=== PATIENT | female | born 1960 | race Caucasian/White ===

== ENCOUNTER 2017-12-19 09:07 | Emergency (ER) | payer BC, OTHER ==
[~2017-12-19] VITALS: Ht 157.5 cm; Wt 49.9 kg
--- NOTE | 2017-12-19 09:58 | Diagnostic Imaging Report ---
INDICATION: Fall, right shoulder injury. TECHNIQUE: 3 views of the right shoulder. COMPARISON: None FINDINGS: There is a fracture through the surgical neck of the right humerus, with vertical extension through the greater tuberosity. There is mild impaction and minimal displacement. Glenohumeral alignment appears normal. There is minimal degenerative change in the right acromioclavicular joint. IMPRESSION: 1. Acute fracture through the surgical neck of the right humerus with extension through the greater tuberosity. There is mild impaction and minimal displacement. Glenohumeral alignment appears normal. Dictated by: Dictated on workstation # [id number]
[2017-12-19] MEDS ORDERED: HYDR-3812 PO (10:34)
--- NOTE | 2017-12-19 10:34 | ED Fall/Injury ---
General Chief Complaint: Upper Extremity Stated Complaint: R SHOULDER OUT OF PLACE Nursing Triage Note: AMB TO ROOM FROM [facility]. FELL ON R SHOULDR WAS TOLD BY URGENT CARE TO COME TO ED DUE TO THEY THINK HER SHOULDER MAY BE DISLOCATED. PATIENT REPORTS TRIPPED AND FELL ON R SHOULDER. SLING IN PLACE Source: patient Exam Limitations: no limitations History of Present Illness Date Seen by Provider: Dec 19, 2017 Time Seen by Provider: 09:26 Initial Comments This 57-year-old woman presents to emergency room with injury to the right shoulder after falling. She tripped on a transition point from one type of hieu to another. She struck her right shoulder on the ground. She was sent to the ER from urgent care because of concern for possible dislocation. A one view shoulder x-ray was performed there. Patient denies any other significant injury. She did not hit her head or lose consciousness. Allergies and Home Medications Allergies Coded Allergies: No Known Drug Allergies (Unverified , 12/19/17) Home Medications Hydrocodone/Acetaminophen 1 Each Tablet, 1-2 EACH PO Q6H PRN for PAIN-MODERATE Prescribed by: MAN SOLANO on 12/19/17 1034 Patient Home Medication List Home Medication List Reviewed: Yes Review of Systems Review of Systems Constitutional: no symptoms reported Eyes: No Symptoms Reported Ears, Nose, Mouth, Throat: no symptoms reported Respiratory: no symptoms reported Cardiovascular: no symptoms reported Gastrointestinal: no symptoms reported Genitourinary: no symptoms reported Musculoskeletal: see HPI Skin: no symptoms reported Psychiatric/Neurological: No Symptoms Reported Past Nvfiqlq-Nfmdag-Peeghq Hx Patient Social History Alcohol Use: Denies Use Recreational Drug Use: No Smoking Status: Never a Smoker Recent Foreign Travel: No Contact w/Someone Who Travel: No Recent Infectious Disease Expo: No Past Medical History Surgeries: Yes Hysterectomy Respiratory: No Cardiac: No Neurological: No Genitourinary: No Gastrointestinal: No Musculoskeletal: No Endocrine: No HEENT: No Cancer: No Did You Recieve Any Treatments: No Psychosocial: No Integumentary: No Physical Exam Vital Signs Vital Signs - First Documented 12/19/17 12/19/17 09:16 10:42 Temp 98.0 Pulse 67 Resp 18 B/P (MAP) 125/68 (87) Pulse Ox 99 O2 Delivery Room Air Capillary Refill : Less Than 3 Seconds Height, Weight, BMI Height: 5'2.00" Weight: 110lbs. oz. 49.036830nt; BMI Method:Stated General Appearance: WD/WN, no apparent distress HEENT: normal ENT inspection Neck: normal inspection Cardiovascular: regular rate, rhythm, no edema, no murmur Respiratory: lungs clear, normal breath sounds, no respiratory distress, no accessory muscle use Extremities: other (Shoulder and proximal right humerus tender to palpation. There is localized swelling. Distal portions of the upper extremity are unremarkable. No pain or tenderness in the wrist or elbow joints. 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, no motor/sensory deficits, alert, normal mood/affect, oriented x 3 Skin: normal color, warm/dry [place] Coma Score Best Eye Response: (4) Open Spontaneously Best Verbal Response: (5) Oriented Best Motor Response: (6) Obeys Commands Katja Total: 15 Progress/Results/Core Measures Results/Orders My Orders Orders - MAN ISAACS MD Shoulder, Right, 3 Views (12/19/17 09:36) Vital Signs/I&O 12/19/17 12/19/17 09:16 10:42 Temp 98.0 Pulse 67 68 Resp 18 18 B/P (MAP) 125/68 (87) 103/59 Pulse Ox 99 98 O2 Delivery Room Air Blood Pressure Mean: 87 Progress Progress Note : Progress Note Patient arrived in a sling placed by urgent care. X-rays were obtained and shoulder fracture was noted. Case discussed with Dr. Kaye who would like to see her in the clinic. Plan was discussed with patient who was dismissed home. Pain medication was prescribed. Diagnostic Imaging Diagonstic Imaging: Xray Plain Films/CT/US/NM/MRI: other (Right shoulder) Comments Right shoulder x-ray viewed by me and report reviewed. See report below: NAME: LYNN GUTIERREZ [facility] REC#: [id number] PT STATUS: REG ER : 1960 PHYSICIAN: MAN ISAACS MD ADMIT DATE: 12/19/17/ER Signed Date of Exam: 12/19/17 SHOULDER, RIGHT, 3 VIEWS INDICATION: Fall, right shoulder injury. TECHNIQUE: 3 views of the right shoulder. COMPARISON: None FINDINGS: There is a fracture through the surgical neck of the right humerus, with vertical extension through the greater tuberosity. There is mild impaction and minimal displacement. Glenohumeral alignment appears normal. There is minimal degenerative change in the right acromioclavicular joint. IMPRESSION: 1. Acute fracture through the surgical neck of the right humerus with extension through the greater tuberosity. There is mild impaction and minimal displacement. Glenohumeral alignment appears normal. Dictated by: Dictated on workstation # [id number] Dict: 12/19/17 0954 Trans: 12/19/17 1045 Interpreted by: FEMI RANDALL MD Electronically signed by: FEMI RANDALL MD 12/19/17 1045 Departure Impression Primary Impression: Fracture of neck of right humerus Qualified Codes: S42.211A - Unspecified displaced fracture of surgical neck of right humerus, initial encounter for closed fracture Additional Impression: Fall on same level from tripping as cause of accidental injury Disposition: 01 HOME, SELF-CARE Condition: Improved Departure-Patient Inst. Decision time for Depature: 10:32 Referrals: NO,LOCAL PHYSICIAN (PCP) Primary Care Physician MAI KAYE MD Patient Instructions: How to Use a Shoulder Sling, Shoulder Fracture Add. Discharge Instructions: Use the sling is much as possible. Icing in 20 minute intervals should help reduce pain and swelling. Use your pain medications as prescribed. It may be advisable to use a stool softener such as Colace while on narcotic pain medications. Follow up with Dr. Kaye or the orthopedist of your choice as soon as possible. Call today to schedule an appointment. Return to the emergency room if you have worsening symptoms. All discharge instructions reviewed with patient and/or family. Voiced understanding. Scripts Hydrocodone/Acetaminophen (Hydrocodone-Acetamin 5-325 mg) 1 Each Tablet 1-2 EACH PO Q6H PRN for PAIN-MODERATE, #30 TAB Prov: MAN ISAACS MD 12/19/17 Copy Copies To 1: MAI KAYE MD, JOSHUA T MD Dec 19, 2017 10:34
[2017-12-19 10:42] VITALS: BP 103/59
== END 2017-12-19 10:42 | disposition home or self-care (01) ==
LOC: EDUNIT# 09:07 → ER 09:08
DX: S42.211A Unspecified displaced fracture of surgical neck of right humerus, initial encounter for closed fracture (principal); Z90.710 Acquired absence of both cervix and uterus; W01.0XXA Fall on same level from slipping, tripping and stumbling without subsequent striking against object, initial encounter
CPT/HCPCS: 73030